=== PATIENT | female | born 1975 ===

== ENCOUNTER 2017-07-19 11:19 | Outpatient (CLI) | payer BC, MEDICAID ==
[2017-07-19] MEDS ORDERED: Iopamidol 370 76% 100 ML VIAL ONE (16:55)
== END 2017-07-19 11:20 | disposition home or self-care (01) ==
LOC: BICCT 11:19
PROVIDERS: ATTEND Internal Medicine Medical Oncology
DX: C53.8 Malignant neoplasm of overlapping sites of cervix uteri (principal); K86.89 Other specified diseases of pancreas; N13.4 Hydroureter; N13.30 Unspecified hydronephrosis; Z92.3 Personal history of irradiation
CPT/HCPCS: 74177